=== PATIENT | male | born 1965 | race Caucasian/White ===

== ENCOUNTER 2019-02-10 14:21 | Emergency (ER) | payer BC, SELFPAY ==
[2019-02-10 14:28] VITALS: BP 173/86; PULSE 54; RESP 18; TEMP 36.2; O2SAT 99; BMI 27.8
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
[2019-02-10] MEDS: TET,DIPH,PERTUSS(ACELL),VAC/PF 0.5 ML SYRINGE IM (15:16)
[2019-02-10] MEDS: LIDOCAINE/PRILOCAINE 5 GM TOP (15:23)
[2019-02-10] MEDS: LIDOCAINE 1% W/EPI INJ 5 ML SUBCUT (16:12)
[2019-02-10] MEDS: BACITRACIN OINT 0.9 GM PCKT 1 APPLIC TOP (17:05)
[2019-02-10 17:14] VITALS: BP 163/98; PULSE 60; RESP 16; TEMP 36.5; O2SAT 99
== END 2019-02-10 17:14 | disposition home or self-care (01) ==
PROVIDERS: Emergency Provider Nurse Practitioner Family; PCP Family Medicine
DX: S01.81XA Laceration without foreign body of other part of head, initial encounter (principal); V18.2XXA Unspecified pedal cyclist injured in noncollision transport accident in nontraffic accident, initial encounter; Z23 Encounter for immunization
CPT/HCPCS: 12011; 70450; 70486; 90471; 99282; 99283; 90715